=== PATIENT | male | born 1980 | race Two or more races ===

== ENCOUNTER 2016-09-15 18:55 | Emergency (ER) | payer OTHER ==
[~2016-09-15] VITALS: Ht 162.6 cm; Wt 66.2 kg
[2016-09-15] MEDS ORDERED: FLUORESCEIN SOD 1 MG TEST STRIP RIGHTEYE ONE (22:15)
[2016-09-15] MEDS ORDERED: TETRACAINE HCL 0.5% OPTH(EYE) SOLN 4ML RIGHTEYE ONE (22:15)
[2016-09-15 23:29] VITALS: BP 141/81
== END 2016-09-15 23:33 | disposition home or self-care (01) ==
LOC: ER 19:08
DX: T15.01XA Foreign body in cornea, right eye, initial encounter (principal); R42 Dizziness and giddiness; R06.02 Shortness of breath; W45.8XXA Other foreign body or object entering through skin, initial encounter; Y93.89 Activity, other specified; Y99.8 Other external cause status; Y92.89 Other specified places as the place of occurrence of the external cause